=== PATIENT | male | born 1960 | race Caucasian/White ===

== ENCOUNTER 2017-11-07 12:05 | Observation (INO) | payer OTHER ==
[~2017-11-07] VITALS: Ht 177.8 cm; Wt 115.0 kg
[~2017-11-07 12:05] MED LIST: ABAC300; ASPI325EC PO; ASPI81CH PO; ATOR40TA PO; CLOP75 PO; CRUTCH4 USE; EFFIENT10 MG PO; HYDACE5 PO; LISI5 PO; LOVA40 PO; MAPAP PM CAPLET1 TAB PO; METO25ER PO; METO50 PO; NAPR500 PO; ROSU5 PO; TRAM50 PO
[2017-11-07 12:48] LABS: BASOPHILS ABSOLUTE AUTO 0.02 K/mm3 (0.00-0.23); BASOPHILS PERCENT AUTO 0 % (0-2); EOSINOPHILS ABSOLUTE AUTO 0.19 K/mm3 (0.00-0.68); EOSINOPHILS PERCENT AUTO 2 % (0-6); Hematocrit 50.6 % (37.0-53.0); Hemoglobin 17.6 g/dL (13.5-17.5); IMMATURE GRAN ABSOLUTE AUTO 0.02 K/mm3 (0.00-0.10); IMMATURE GRAN PERCENT AUTO 0 % (0-1); LYMPHOCYTES ABSOLUTE AUTO 2.23 K/mm3 (0.84-5.20); LYMPHOCYTES PERCENT AUTO 20 % (21-46); MONOCYTES ABSOLUTE AUTO 1.36 K/mm3 (0.16-1.47); MONOCYTES PERCENT AUTO 12 % (4-13); Mean Corpuscular HGB 33.1 pg (26.0-34.0); Mean Corpuscular HGB Conc 34.8 g/dL (31.5-36.5); Mean Corpuscular Volume 95 fL (80-100); Mean Platelet Volume 9.7 fL (9.1-12.4); NEUTROPHILS ABSOLUTE AUTO 7.31 K/mm3 (1.96-9.15); NEUTROPHILS PERCENT AUTO 66 % (41-73); Platelet Count 286 K/mm3 (150-400); RDW Coefficient Variation 13.3 % (11.7-14.2); RDW Standard Deviation 45.8 fL (35.1-46.3); Red Blood Cell Count 5.32 M/mm3 (4.30-5.90); White Blood Cell Count 11.13 K/mm3 (4.00-11.30)
[2017-11-07 13:00] LABS: Alanine Aminotransfer (ALT/SGP 26 U/L (12-78); Albumin, Blood 3.6 g/dL (3.4-5.0); Albumin/Globulin Ratio 0.9 (0.8-1.8); Alk Phos 90 U/L (50-136); Anion Gap 10 mmol/L (6-16); Aspartate Aminotrans (AST/SGOT 14 U/L (12-37); Bilirubin, Total 0.5 mg/dL (0.1-1.0); Blood Urea Nitrogen 17 mg/dL (8-24); Bun/Creatinine Ratio 19.9 (12.0-20.0); CO2, Blood 20 mmol/L (21-32); Calcium, Blood 8.8 mg/dL (8.5-10.1); Chloride, Blood 110 mmol/L (98-108); Creatinine, Blood 0.85 mg/dL (0.60-1.20); Globulin, Blood 4.1 g/dL (2.2-4.0); Glomerular Filtration Rate >60 (60-); Glucose, Blood 135 mg/dL (70-99); Potassium, Blood 4.1 mmol/L (3.5-5.5); Sodium, Blood 140 mmol/L (136-145); Total Protein, Blood 7.7 g/dL (6.4-8.2); Troponin I <0.015 ng/mL (0.000-0.040)
[2017-11-07] MEDS ORDERED: Aspirin EC81 MG PO (16:33)
[2017-11-07] MEDS ORDERED: LIVALO2 MG PO (17:01)
[2017-11-08 04:50] LABS: BASOPHILS ABSOLUTE AUTO 0.02 K/mm3 (0.00-0.23); BASOPHILS PERCENT AUTO 0 % (0-2); EOSINOPHILS ABSOLUTE AUTO 0.28 K/mm3 (0.00-0.68); EOSINOPHILS PERCENT AUTO 3 % (0-6); Hematocrit 48.5 % (37.0-53.0); Hemoglobin 16.2 g/dL (13.5-17.5); IMMATURE GRAN ABSOLUTE AUTO 0.03 K/mm3 (0.00-0.10); IMMATURE GRAN PERCENT AUTO 0 % (0-1); LYMPHOCYTES PERCENT AUTO 37 % (21-46); MONOCYTES ABSOLUTE AUTO 1.11 K/mm3 (0.16-1.47); MONOCYTES PERCENT AUTO 13 % (4-13); Mean Corpuscular HGB 32.7 pg (26.0-34.0); Mean Corpuscular HGB Conc 33.4 g/dL (31.5-36.5); Mean Platelet Volume 9.9 fL (9.1-12.4); NEUTROPHILS ABSOLUTE AUTO 4.08 K/mm3 (1.96-9.15); NEUTROPHILS PERCENT AUTO 47 % (41-73); Platelet Count 244 K/mm3 (150-400); RDW Coefficient Variation 13.3 % (11.7-14.2); RDW Standard Deviation 47.5 fL (35.1-46.3); Red Blood Cell Count 4.96 M/mm3 (4.30-5.90); White Blood Cell Count 8.72 K/mm3 (4.00-11.30)
[2017-11-08 04:57] LABS: Mean Corpuscular Volume 98 fL (80-100)
[2017-11-08 06:05] LABS: Anion Gap 7 mmol/L (6-16); Blood Urea Nitrogen 18 mg/dL (8-24); Bun/Creatinine Ratio 20.4 (12.0-20.0); CO2, Blood 24 mmol/L (21-32); Calcium, Blood 8.6 mg/dL (8.5-10.1); Chloride, Blood 108 mmol/L (98-108); Creatinine, Blood 0.88 mg/dL (0.60-1.20); Glomerular Filtration Rate >60 (60-); Glucose, Blood 88 mg/dL (70-99); Sodium, Blood 139 mmol/L (136-145)
[2017-11-09 08:08] LABS: LDL/HDL RATIO 2.3; Very Low Density Lipoprot Chol 68 mg/dL (6-32)
[2017-11-09 08:09] LABS: CHOL/HDL RATIO 5.3; Cholesterol 176 mg/dL (50-200); HDL Cholesterol 33 mg/dL (>39); Low Density Lipoprotein Chol 75 mg/dL (0-110); Triglycerides 341 mg/dL (30-160)
[2017-11-09] MEDS ORDERED: FAMO20 PO (14:53)
[2017-11-09] MEDS ORDERED: NITR.4SL SL (14:54)
== END 2017-11-09 15:20 | disposition home or self-care (01) ==
LOC: ER 12:05 → MEDS 12:06
PROVIDERS: Emergency Medicine; Hospitalist; Internal Medicine
DX: R07.9 Chest pain, unspecified (principal); I11.9 Hypertensive heart disease without heart failure; I25.5 Ischemic cardiomyopathy; I25.10 Atherosclerotic heart disease of native coronary artery without angina pectoris; I25.2 Old myocardial infarction; E78.5 Hyperlipidemia, unspecified; Z79.82 Long term (current) use of aspirin; Z72.0 Tobacco use; Z95.5 Presence of coronary angioplasty implant and graft; Z79.899 Other long term (current) drug therapy
CPT/HCPCS: 36415; 71046; 78452; 80048; 80053; 80061; 83690; 84443; 84484; 85025; 93005; 93010; 93017; 96360; 96361; 99285; A9500; G0378; J0280; J2785; J3480; J7030

== ENCOUNTER 2018-03-02 11:59 | Emergency (ER) | payer OTHER ==
[~2018-03-02] VITALS: Ht 177.8 cm; Wt 122.5 kg
[~2018-03-02 11:59] MED LIST changes: +Aspirin EC81 MG PO; +FAMO20 PO; +LIVALO2 MG PO; +NITR.4SL SL
== END 2018-03-02 14:12 | disposition home or self-care (01) ==
LOC: ER 11:59
DX: M77.42 Metatarsalgia, left foot (principal); I25.2 Old myocardial infarction; I10 Essential (primary) hypertension; Z79.899 Other long term (current) drug therapy; Z79.82 Long term (current) use of aspirin; Z87.891 Personal history of nicotine dependence
CPT/HCPCS: 73630; 99283

== ENCOUNTER 2018-12-19 07:18 | Day surgery (SDC) | payer OTHER ==
[~2018-12-19] VITALS: Ht 177.8 cm; Wt 121.0 kg
[~2018-12-19 07:18] MED LIST changes: +CENTRUM SILVER1 EAC1 PO; +GABA300 PO; -LIVALO2 MG PO; +LIVALO4 MG PO; +TRIA15CR3 TOP; +UBID100 PO
[2018-12-19 08:41] LABS: Anion Gap 6 mmol/L (6-16); Blood Urea Nitrogen 15 mg/dL (8-24); Bun/Creatinine Ratio 16.7 (12.0-20.0); CO2, Blood 23 mmol/L (21-32); Calcium, Blood 8.6 mg/dL (8.5-10.1); Chloride, Blood 109 mmol/L (98-108); Glomerular Filtration Rate >60 (60-); Glucose, Blood 106 mg/dL (70-99); Sodium, Blood 138 mmol/L (136-145)
[2018-12-19 08:43] LABS: BASOPHILS ABSOLUTE AUTO 0.04 K/mm3 (0.00-0.23); BASOPHILS PERCENT AUTO 1 % (0-2); EOSINOPHILS ABSOLUTE AUTO 0.35 K/mm3 (0.00-0.68); EOSINOPHILS PERCENT AUTO 4 % (0-6); Hematocrit 49.8 % (37.0-53.0); Hemoglobin 16.5 g/dL (13.5-17.5); IMMATURE GRAN ABSOLUTE AUTO 0.03 K/mm3 (0.00-0.10); IMMATURE GRAN PERCENT AUTO 0 % (0-1); LYMPHOCYTES ABSOLUTE AUTO 2.24 K/mm3 (0.84-5.20); LYMPHOCYTES PERCENT AUTO 27 % (21-46); MONOCYTES ABSOLUTE AUTO 1.34 K/mm3 (0.16-1.47); MONOCYTES PERCENT AUTO 16 % (4-13); Mean Corpuscular HGB Conc 33.1 g/dL (31.5-36.5); Mean Corpuscular Volume 97 fL (80-100); NEUTROPHILS ABSOLUTE AUTO 4.43 K/mm3 (1.96-9.15); NEUTROPHILS PERCENT AUTO 52 % (41-73); Platelet Count 261 K/mm3 (150-400); RDW Coefficient Variation 13.2 % (11.7-14.2); RDW Standard Deviation 47.4 fL (35.1-46.3); Red Blood Cell Count 5.15 M/mm3 (4.30-5.90); White Blood Cell Count 8.43 K/mm3 (4.00-11.30)
[2018-12-19 09:08] LABS: International Normalized Ratio 0.93; Prothrombin Time Results 9.9 Sec (9.7-11.5)
--- NOTE | 2018-12-19 12:08 | NUR ---
PT SLEEPING AT THIS TIME. NADN. VSS. R FEMORAL SITE STABLE. CALL LIGHT WITHIN REACH.
--- NOTE | 2018-12-19 12:40 | NUR ---
PT AMBULATES TO RESTROOM AND BACK WITHOUT DIFF. R GROIN REMAINS STABLE. VSS. NADN. PT DRESSING SELF WITHOUT DIFF. PT ANXIOUS TO LEAVE. STS, "I AM READY TO GO, LETS GET THIS GOING"
--- NOTE | 2018-12-19 12:56 | NUR ---
DR BROOKS VERBALIZES OKAY FOR PT TO LEAVE NOW. SITE REMAINS CLEAR/ STABLE. PT VERBALIZES UNDERSTANDING WRITTEN AND VERBAL ORDERS. IV DC'D. CATH INTACT. PRESSURE DSG IN PLACE. PT DC TO HOME BY [facility].
== END 2018-12-19 12:56 | disposition home or self-care (01) ==
LOC: MHTC 07:18
PROVIDERS: Internal Medicine Cardiovascular Disease
DX: R07.9 Chest pain, unspecified (principal); Z79.899 Other long term (current) drug therapy
CPT/HCPCS: 36415; 80048; 85025; 85610; 93455; 99152; 99153; C1760; C1769; J1644; J2250; J3010; J7030; Q9967

== ENCOUNTER 2020-03-17 14:55 | Inpatient (IN) | payer OTHER ==
[~2020-03-17] VITALS: Ht 177.8 cm; Wt 121.2 kg
[~2020-03-17 14:55] MED LIST changes: -Aspirin EC81 MG PO; -CENTRUM SILVER1 EAC1 PO; -EFFIENT10 MG PO; -GABA300 PO; -LISI5 PO; -LIVALO4 MG PO; -METO50 PO; -UBID100 PO
[2020-03-17 15:44] LABS: Hematocrit 43.8 % (37.0-53.0); Hemoglobin 15.5 g/dL (13.5-17.5); Mean Corpuscular HGB 31.2 pg (26.0-34.0); Mean Corpuscular HGB Conc 35.4 g/dL (31.5-36.5); Mean Corpuscular Volume 88 fL (80-100); Mean Platelet Volume 10.3 fL (9.1-12.4); Platelet Count 400 K/mm3 (150-400); RDW Coefficient Variation 12.8 % (11.7-14.2); RDW Standard Deviation 41.7 fL (35.1-46.3); Red Blood Cell Count 4.97 M/mm3 (4.30-5.90); White Blood Cell Count 14.62 K/mm3 (4.00-11.30)
[2020-03-17 16:11] LABS: BAND PERCENT MAN 5 % (0-8); BASOPHILS ABSOLUTE MAN 0.14 K/mm3 (0.00-0.23); BASOPHILS PERCENT MAN 1 % (0-2); EOSINOPHILS PERCENT MAN 0 % (0-6); LYMPHOCYTES ABSOLUTE MAN 1.02 K/mm3 (0.84-5.20); LYMPHOCYTES PERCENT MAN 7 % (21-46); METAMYELOCYTE ABSOLUTE MAN 0.14 K/mm3 (0.00-0.00); METAMYELOCYTE PERCENT MAN 1 % (0-0); MONOCYTES ABSOLUTE MAN 2.19 K/mm3 (0.16-1.47); MONOCYTES PERCENT MAN 15 % (4-13); NEUTROPHILS ABSOLUTE MAN 11.11 K/mm3 (1.96-9.15); SEG NEUTROPHILS PERCENT MAN 71 % (41-73); TOTAL CELLS COUNTED 100
[2020-03-17 16:13] LABS: Albumin, Blood 2.9 g/dL (3.4-5.0); Albumin/Globulin Ratio 0.6 (0.8-1.8); Bilirubin, Total 0.3 mg/dL (0.1-1.0); Bun/Creatinine Ratio 9.9 (12.0-20.0); Calcium, Blood 7.7 mg/dL (8.5-10.1); Creatinine, Blood 11.8 mg/dL (0.60-1.20); Globulin, Blood 4.7 g/dL (2.2-4.0); Potassium, Blood 2.9 mmol/L (3.5-5.5); Total Protein, Blood 7.6 g/dL (6.4-8.2)
[2020-03-17] MEDS ORDERED: EFFIENT10 MG PO (17:18)
[2020-03-17] MEDS ORDERED: LIVALO4 MG PO (17:18)
[2020-03-17] MEDS ORDERED: LISI5 PO (17:18)
[2020-03-17] MEDS ORDERED: METO50 PO (17:18)
[2020-03-17] MEDS ORDERED: FENO54 PO (17:19)
[2020-03-17] MEDS ORDERED: ISOSORBIDE MONO30 MG PO (17:19)
[2020-03-17] MEDS ORDERED: GABA300 PO (17:19)
[2020-03-17] MEDS ORDERED: PANT40 PO (17:20)
[2020-03-17] MEDS ORDERED: NITR.4SL SL (17:21)
[2020-03-17] MEDS ORDERED: Aspirin EC81 MG PO (17:30)
[2020-03-17] MEDS ORDERED: UBID100 PO (17:31)
[2020-03-17] MEDS ORDERED: CENTRUM SILVER1 EAC1 PO (17:31)
--- NOTE | 2020-03-17 19:35 | NUR ---
ADMISSION TO ICU: REPORT RECEIVED FROM STEVAN Shanks ED RN. PT ARRIVED TO UNIT AT APPROX 1850. HE IS ABLE TO STAND & TX FROM GURNEY TO BED W/O DIFFICULTY. HE DENIES ANY DIZZINESS OR LIGHTHEADEDNESS ON TX. PT IS PROFOUNDLY HYPOTENSIVE ON ARRIVAL, DOPAMINE INCREASED TO 10 MCG/KG/MIN & BESS Phoenix, WORK OVER RIG OPERATOR, HAS CALLED HOSPITALIST TO NOTIFY. ORDERS PLACED FOR GROUP FITNESS ASSISTANT DEPARTMENT HEAD CONSULT & LEVOPHED PRN. REPORT HAS BEEN GIVEN TO JV Thorpe RN TO ASSUME CARE.
--- NOTE | 2020-03-17 20:00 | NUR ---
PATIENT RESTING IN BED A&O ANSWERING ADMIT QUESTIONS WITHOUT DIFFICULTY, OSORIO SLIGHTLY WEAK, ABLE TO VOID KALA URINE SPECIMEN SENT TO LAB. DOPAMINE DRIP TITRATING FOR HYPOTENSION SEE FLOW SHEET. DOCTOR KIMBERLY IN TO SEE PATIENT. DOCTOR REMEDIOS FOLLOWING ELECTROLYTES, SEE ORDERS. CENTRAL LINE TO RIGHT IJ PLACED IN ED. PATIENT C/O BEING THIRSTY AND HUNGRY ORDER FOR CLEAR LIQUID PATIENT TOM CLEAR ENSURE WITHOUT DIFFICULTY.
[2020-03-17 20:08] LABS: Source, Urine Clean Catch
[2020-03-17 20:10] LABS: Bilirubin, Urine Neg (Neg); Blood, Urine 4+ (Neg); Glucose Qualitative, Urine Neg (Neg); Ketones, Urine Neg (Neg); Leukocyte Esterase, Urine Neg (Neg); Nitrite, Urine Neg (Neg); Protein, Urine 3+ (Neg); Specific Gravity, Urine 1.015 (1.003-1.022); Urobilinogen, Urine NORM (Normal)
[2020-03-17 20:16] LABS: Appearance, Urine Clear (Clear); Color, Urine Yellow (P-Yellow)
[2020-03-17 20:18] LABS: Bacteria Mod /hpf; Squamous Epithelial Cells Rare /hpf (Few)
[2020-03-17 20:29] LABS: Albumin, Blood 2.5 g/dL (3.4-5.0); Anion Gap 19 mmol/L (6-16); Blood Urea Nitrogen 111 mg/dL (8-24); CO2, Blood 12 mmol/L (21-32); Calcium, Blood 6.7 mg/dL (8.5-10.1); Chloride, Blood 100 mmol/L (98-108); Glucose, Blood 104 mg/dL (70-99); Phosphorus, Blood 7.5 mg/dL (2.5-4.9); Potassium, Blood 2.8 mmol/L (3.5-5.5); Sodium, Blood 131 mmol/L (136-145)
[2020-03-17 20:31] LABS: Bun/Creatinine Ratio 10.8 (12.0-20.0); Glomerular Filtration Rate 5 (60-)
[2020-03-17 23:48] LABS: Albumin, Blood 2.4 g/dL (3.4-5.0); Anion Gap 17 mmol/L (6-16); Blood Urea Nitrogen 109 mg/dL (8-24); Bun/Creatinine Ratio 11.5 (12.0-20.0); CO2, Blood 13 mmol/L (21-32); Calcium, Blood 6.6 mg/dL (8.5-10.1); Chloride, Blood 102 mmol/L (98-108); Creatinine, Blood 9.51 mg/dL (0.60-1.20); Glomerular Filtration Rate 6 (60-); Glucose, Blood 127 mg/dL (70-99); Phosphorus, Blood 7.3 mg/dL (2.5-4.9); Sodium, Blood 132 mmol/L (136-145)
[2020-03-18 03:31] LABS: BASOPHILS ABSOLUTE AUTO 0.04 K/mm3 (0.00-0.23); BASOPHILS PERCENT AUTO 0 % (0-2); EOSINOPHILS ABSOLUTE AUTO 0.01 K/mm3 (0.00-0.68); EOSINOPHILS PERCENT AUTO 0 % (0-6); Hematocrit 37.6 % (37.0-53.0); Hemoglobin 13.3 g/dL (13.5-17.5); Mean Corpuscular HGB 31.4 pg (26.0-34.0); Mean Corpuscular HGB Conc 35.4 g/dL (31.5-36.5); Mean Corpuscular Volume 89 fL (80-100); Mean Platelet Volume 9.9 fL (9.1-12.4); Platelet Count 357 K/mm3 (150-400); RDW Coefficient Variation 12.8 % (11.7-14.2); Red Blood Cell Count 4.24 M/mm3 (4.30-5.90); White Blood Cell Count 11.72 K/mm3 (4.00-11.30)
[2020-03-18 03:32] LABS: IMMATURE GRAN ABSOLUTE AUTO 0.16 K/mm3 (0.00-0.10); IMMATURE GRAN PERCENT AUTO 1 % (0-1); LYMPHOCYTES ABSOLUTE AUTO 1.16 K/mm3 (0.84-5.20); LYMPHOCYTES PERCENT AUTO 10 % (21-46); MONOCYTES ABSOLUTE AUTO 1.84 K/mm3 (0.16-1.47); MONOCYTES PERCENT AUTO 16 % (4-13); NEUTROPHILS ABSOLUTE AUTO 8.51 K/mm3 (1.96-9.15); NEUTROPHILS PERCENT AUTO 73 % (41-73)
[2020-03-18 03:59] LABS: Magnesium, Blood 2.1 mg/dL (1.6-2.4); Uric Acid, Blood 15.1 mg/dL (3.5-7.2)
[2020-03-18 04:02] LABS: Thyroid Stimulating Hormone 0.117 uIU/mL (0.360-4.800)
[2020-03-18 04:14] LABS: Albumin, Blood 2.3 g/dL (3.4-5.0); Anion Gap 15 mmol/L (6-16); Blood Urea Nitrogen 105 mg/dL (8-24); Bun/Creatinine Ratio 12.4 (12.0-20.0); CO2, Blood 15 mmol/L (21-32); Calcium, Blood 6.9 mg/dL (8.5-10.1); Chloride, Blood 104 mmol/L (98-108); Creatinine, Blood 8.45 mg/dL (0.60-1.20); Glomerular Filtration Rate 7 (60-); Glucose, Blood 141 mg/dL (70-99); Phosphorus, Blood 5.1 mg/dL (2.5-4.9); Sodium, Blood 134 mmol/L (136-145); Troponin I 0.871 ng/mL (0.000-0.040)
[2020-03-18 04:15] LABS: Albumin, Blood 2.2 g/dL (3.4-5.0); Albumin/Globulin Ratio 0.6 (0.8-1.8); Bilirubin, Total 0.2 mg/dL (0.1-1.0); Bun/Creatinine Ratio 12.4 (12.0-20.0); Calcium, Blood 6.8 mg/dL (8.5-10.1); Creatinine, Blood 8.45 mg/dL (0.60-1.20); Potassium, Blood 2.9 mmol/L (3.5-5.5); Total Protein, Blood 6.2 g/dL (6.4-8.2)
--- NOTE | 2020-03-18 06:31 | NUR ---
SUMMARY PATIENT AWAKENS TO SLIGHT STIMULI. NO C/O NAUSEA AND NO BM T/O NIGHT. DOPAMINE DRIP CONTINUES TITRATING T/O NIGHT FOR HYPOTENSION NOW AT 5 MCG. PATIENT URINATING WITHOUT DIFFICULTY. LABS CALLED TO DOCTOR WHITTAKER SEE ORDERS. PATIENT CONTINUES TO HAVE AUDIBLE WHEEZES WITH ACTIVITY OXYGEN CONTINUES AT 2L/NC.
--- NOTE | 2020-03-18 07:30 | NUR ---
ASSUMED CARE BEDSIDE REPORT RECIEVED. PT IS LAYING IN BED RESTING QUIETLY UPON ENTERING ROOM. PT AWAKENS TO VERBAL STIMULI. PT DENIES ANY PAIN OR SOB AT THIS TIME. PT WITH AUDIBLE WHEEZING HEARD FROM BEDSIDE. PT ON 2L O2 NC, SPO2 >94%. VITAL SIGHS STABLE. CENTRAL LINE TO RIJ IN PLACE WITH DOPAMINE INFUSING AT 5 MCG/KG/MIN, BICARB AT 100 ML/HR, AND NS TKO. PT USING URINAL INDEPENDENTLY TO VOID. PT REPOSITIONS SELF IN BED INDEPENDENTLY. PT REQUESTING TO SLEEP MORE THIS MORNING. WILL CONTINUE TO MONITOR.
[2020-03-18 12:35] LABS: Potassium, Blood 2.8 mmol/L (3.5-5.5)
--- NOTE | 2020-03-18 17:49 | NUR ---
SHIFT SUMMARY NO ACUTE CHANGES THIS SHIFT. PT HAS SLEPT OFF AND ON FOR MOST OF THE DAY. WHEN AWAKE PT IS ALERT, ORIENTED, AND ANSWERS QUESTIONS APPROPRIATELY. PT HAS DENIED PAIN, DISCOMFORT, NAUSEA, AND SOB THROUGHOUT THE SHIFT. PT REMAINS ON DOPAMINE GTT AT 5 MCG/KG/MIN. VITAL SIGNS HAVE REMAINED STABLE, PT ON ROOM AIR. CL TO RIGHT IJ IS C/D/I. BICARB GTT INFUSING AT 75 ML/HR. NS TKO. PT VOIDING LARGE AMOUNT OF CLEAR YELLOW URINE WITH URINAL. PT HAS REPOSITIONED SELF IN BED INDEPENDENTLY THROUGHOUT THE DAY. WILL CONTINUE TO MONITOR AND REPORT OFF TO ONCOMING RN.
[2020-03-18 20:22] LABS: Potassium, Blood 2.9 mmol/L (3.5-5.5)
--- NOTE | 2020-03-18 22:39 | NUR ---
ASSUMED PT CARE AT 1915 FROM KILLIAN CATALAN PT IS ALERT AND ORIENTED AND ABLE TO MAKE NEEDS KNOWN. CENTRAL LINE NOTED TO RIGHT IJ WITH DOPAMINE INFUSING AT 5MCG/KG/MIN. BICARB AT 75ML/HR. NS TKO. PT DENIES ANY PAIN. UTILIZING URINAL APPROPRIATELY TO VOID. DENIES ANY N/V, DIARRHEA, WELL CHEST PAIN. BP'S STABLE AT THIS TIME; WILL TITRATE DOPAMINE ACCORDINGLY; SEE FLOWSHEET. PT NOTED TO BE IN NSR WITH HR 80-90'S. PT HAS AUDIBLE WHEEZING NOTED; HOWEVER, DENIES ANY SOB. CALL LIGHT WITHIN REACH. PT IS ABLE TO MAKE NEEDS KNOWN.
[2020-03-19 04:08] LABS: BASOPHILS ABSOLUTE AUTO 0.06 K/mm3 (0.00-0.23); BASOPHILS PERCENT AUTO 1 % (0-2); EOSINOPHILS ABSOLUTE AUTO 0.07 K/mm3 (0.00-0.68); EOSINOPHILS PERCENT AUTO 1 % (0-6); Hematocrit 40.1 % (37.0-53.0); Hemoglobin 14.2 g/dL (13.5-17.5); IMMATURE GRAN ABSOLUTE AUTO 0.42 K/mm3 (0.00-0.10); IMMATURE GRAN PERCENT AUTO 3 % (0-1); LYMPHOCYTES ABSOLUTE AUTO 1.91 K/mm3 (0.84-5.20); LYMPHOCYTES PERCENT AUTO 16 % (21-46); MONOCYTES ABSOLUTE AUTO 2.47 K/mm3 (0.16-1.47); MONOCYTES PERCENT AUTO 20 % (4-13); Mean Corpuscular HGB 31.4 pg (26.0-34.0); Mean Corpuscular HGB Conc 35.4 g/dL (31.5-36.5); Mean Corpuscular Volume 89 fL (80-100); Mean Platelet Volume 9.8 fL (9.1-12.4); NEUTROPHILS ABSOLUTE AUTO 7.34 K/mm3 (1.96-9.15); NEUTROPHILS PERCENT AUTO 60 % (41-73); Platelet Count 385 K/mm3 (150-400); RDW Coefficient Variation 13.2 % (11.7-14.2); RDW Standard Deviation 43.6 fL (35.1-46.3); Red Blood Cell Count 4.52 M/mm3 (4.30-5.90); White Blood Cell Count 12.27 K/mm3 (4.00-11.30)
[2020-03-19 04:30] LABS: Albumin, Blood 2.5 g/dL (3.4-5.0); Anion Gap 10 mmol/L (6-16); Blood Urea Nitrogen 57 mg/dL (8-24); Bun/Creatinine Ratio 24.5 (12.0-20.0); CO2, Blood 20 mmol/L (21-32); Chloride, Blood 112 mmol/L (98-108); Creatinine, Blood 2.33 mg/dL (0.60-1.20); Glomerular Filtration Rate 30 (60-); Glucose, Blood 114 mg/dL (70-99); Magnesium, Blood 2.2 mg/dL (1.6-2.4); Phosphorus, Blood 2.8 mg/dL (2.5-4.9); Potassium, Blood 3.1 mmol/L (3.5-5.5); Sodium, Blood 142 mmol/L (136-145)
--- NOTE | 2020-03-19 05:22 | NUR ---
END OF SHIFT SUMMARY NO SIGNIFICANT CHANGES SINCE LAST ENTRY. DOPAMINE GTT REMAINS AT 5MCG/KG/MIN. BP'S STABLE; SEE FLOWSHEET. PT HAS BEEN NSR WITH AV BLOCK NOTED; HR 70-80'S. NS INFUSING AT 75MLS/HR; BICARB GTT HAS BEEN DISCONTINUED. PT REMAINS ALERT AND ORIENTED AND ABLE TO MAKE NEEDS KNOWN. VOIDING ADEQUATELY USING BEDSIDE URINALS. UP TO TOILET ONCE THIS SHIFT D/T DIARRHEA EPISODE; UNABLE TO MEASURE D/T PT FLUSHING TOILET. PT DENIES ANY N/V, CHEST PAIN, WELL SOB. PLACED ON 2L VIA NC T/O NIGHT D/T OXYGEN SATURATIONS DROPPING TO LOW 80'S. CALL LIGHT WITHIN REACH; PT IS ABLE TO MAKE NEEDS KNOWN. WILL CONTINUE TO MONITOR UNTIL REPORT IS HANDED OFF TO ONCOMING RN.
--- NOTE | 2020-03-19 07:30 | NUR ---
ASSUMED CARE: PT RESTING QUIETLY IN BED. DOPAMIN GTT IN PLACE AT 5MCG/KG/MIN. TITRATED DOWN TO 4MCG/KG/MIN AFTER TRENDING BLOOD PRESSURES. PT IS ALERT AND ORIENTED, MOVES SELF IN BED. STATES BED IS UNCOMFORTABLE BUT DECLINED MOVING INTO CHAIR WHEN OFFERED. VOIDING WELL, CLEAR YELLOW. DENIES NEEDS OR CONCERNS AT THIS TIME.
--- NOTE | 2020-03-19 11:01 | NUR ---
DISCUSSED WITH DR WANG PT'S CONTINUED NEED FOR DOPAMINE, STARTED ON MIDODRINE. DISCUSSED POSSIBLE MAINTENANCE PO POTASSIUM BUT DR WANG WILL DEFER TO DR WHITTAKER. DR MARSHALL MADE AWARE OF PT'S DIARRHEA AND ASKED ABOUT CANCELLED GI PANEL. DR STATED TO ORDER AGAIN SINCE DIARRHEA WAS REPORTED BY NIGHT RN
[2020-03-19 13:39] LABS: Campylobacter Sp Not Detected (NOT DETECT); Plesiomonas Shigelloides Not Detected (NOT DETECT); Salmonella Sp Detected (NOT DETECT)
[2020-03-19 13:40] LABS: Adenovirus F 40/41 Not Detected (NOT DETECT); Astrovirus Not Detected (NOT DETECT); Cryptosporidium Not Detected (NOT DETECT); Cyclospora Cayetanensis Not Detected (NOT DETECT); E. Coli O157 Not Detected (NOT DETECT); Entamoeba Histolytica Not Detected (NOT DETECT); Enteroaggregative E. coli-EAEC Not Detected (NOT DETECT); Enteropathogenic E. coli-EPEC Not Detected (NOT DETECT); Enterotoxigenic E. coli-ETEC Not Detected (NOT DETECT); Giardia Lamblia Not Detected (NOT DETECT); Norovirus GI/GII Not Detected (NOT DETECT); Rotavirus A Not Detected (NOT DETECT); Sapovirus Not Detected (NOT DETECT); Shiga Toxin-prod E. coli-STEC Not Detected (NOT DETECT); Shigella/Enteroin E. coli-EIEC Not Detected (NOT DETECT); Vibrio Cholerae Not Detected (NOT DETECT); Vibrio Sp Not Detected (NOT DETECT); Yersinia Enterocolitica Not Detected (NOT DETECT)
--- NOTE | 2020-03-19 14:25 | NUR ---
PT'S STOOL SAMPLE POSITIVE FOR SAMOLNELLA. DISCUSSED WITH PROCESS OWNER, DR WANG AND DR MARSHALL. INFECTION CONTROL AWARE AND REPORTING TO HEALTH DEPARTMENT. CALL TO PT'S BROTHER SINCE PT STATES THEY LIVE TOGETHER AND EAT THE SAME FOOD AND SHOP AT THE SAME PLACES. INFECTION CONTROL AWARE OF BROTHER'S SUSPECTED SOURCES.
--- NOTE | 2020-03-19 17:28 | NUR ---
SHIFT SUMMARY: PT HAS BEEN OFF DOPAMINE SINCE 1440. VSS. AMBULATING TO TOILET IN ROOM WITH ASSISTANCE WITH LINES. FREQUENT DIARRHEA. STOOL SAMPLE POSITIVE FOR SALMONELLA. DRS AWARE. PT DENIES NEEDS OR CONCERNS AT THIS TIME.
--- NOTE | 2020-03-19 20:00 | NUR ---
ASSUMPTION OF CARE: PT A&O. UP IN ROOM ON OWN. LUNG SOUNDS CLEAR, DIM IN BASES. HAS A DRY NONPRODUCTIVE COUGH. SPO2 >90% ON RA. IN SR. SBP 100S, HR 70S. DOPAMINE HAS BEEN OFF SINCE THIS AFTERNOON. MIDODRINE TO BE STARTED. CL IN RIJ. SMALL AMOUNT OF BLOOD ON CHG AND OUTER EDGE OF DRESSING. OTHERWISE DRY AND INTACT. NS INFUSING AT 75MLS/HR. PT K+ THIS EVENING IS 3.4. ORDERS RECEIVED FROM DR. WHITTAKER TO INFUSE KCL 20MEQS IV. PT IS VOIDING INTO URINAL. WILL CONTINUE TO MONITOR
[2020-03-20 06:23] LABS: BASOPHILS ABSOLUTE AUTO 0.04 K/mm3 (0.00-0.23); BASOPHILS PERCENT AUTO 0 % (0-2); LYMPHOCYTES ABSOLUTE AUTO 2.16 K/mm3 (0.84-5.20); RDW Coefficient Variation 13.6 % (11.7-14.2); RDW Standard Deviation 45.1 fL (35.1-46.3)
--- NOTE | 2020-03-20 06:29 | NUR ---
SHIFT SUMMARY: NO ACUTE CHANGES T/O SHIFT. VSS. SBP 110-160S. HR IN THE 70-80. PT UP TO TOILET VOIDING FREQUENTLY T/O THE NIGHT. LUNG SOUNDS REMAIN WHEEZY, SPO2 >90% ON RA. CENTRAL LINE IN RIJ. DRESSING CHANGE X 2. CURRENTLY C/D/I. AT THIS TIME PT IS REFUSING VITALS TO BE TAKEN STATING HE "CANT DO IT. I CANT SPEND ANOTHER DAY HERE". DENIES WANTING TO AMA. WILL PASS REPORT TO ONCOMING RN
[2020-03-20 06:40] LABS: Albumin, Blood 2.3 g/dL (3.4-5.0); Anion Gap 10 mmol/L (6-16); Blood Urea Nitrogen 23 mg/dL (8-24); Bun/Creatinine Ratio 22.3 (12.0-20.0); CO2, Blood 23 mmol/L (21-32); Chloride, Blood 113 mmol/L (98-108); Creatinine, Blood 1.03 mg/dL (0.60-1.20); Glomerular Filtration Rate >60 (60-); Glucose, Blood 105 mg/dL (70-99); Magnesium, Blood 1.8 mg/dL (1.6-2.4); Phosphorus, Blood 1.2 mg/dL (2.5-4.9); Potassium, Blood 3.3 mmol/L (3.5-5.5); Sodium, Blood 146 mmol/L (136-145); Troponin I 0.122 ng/mL (0.000-0.040)
[2020-03-20 06:41] LABS: EOSINOPHILS ABSOLUTE AUTO 0.17 K/mm3 (0.00-0.68); EOSINOPHILS PERCENT AUTO 2 % (0-6); Hematocrit 36.3 % (37.0-53.0); Hemoglobin 12.8 g/dL (13.5-17.5); IMMATURE GRAN ABSOLUTE AUTO 0.33 K/mm3 (0.00-0.10); IMMATURE GRAN PERCENT AUTO 3 % (0-1); LYMPHOCYTES PERCENT AUTO 21 % (21-46); MONOCYTES ABSOLUTE AUTO 1.97 K/mm3 (0.16-1.47); MONOCYTES PERCENT AUTO 19 % (4-13); Mean Corpuscular HGB 31.8 pg (26.0-34.0); Mean Corpuscular HGB Conc 35.3 g/dL (31.5-36.5); Mean Corpuscular Volume 90 fL (80-100); NEUTROPHILS ABSOLUTE AUTO 5.76 K/mm3 (1.96-9.15); NEUTROPHILS PERCENT AUTO 55 % (41-73); Red Blood Cell Count 4.03 M/mm3 (4.30-5.90); White Blood Cell Count 10.43 K/mm3 (4.00-11.30)
[2020-03-20 06:47] LABS: Mean Platelet Volume 10.3 fL (9.1-12.4); Platelet Count 336 K/mm3 (150-400)
--- NOTE | 2020-03-20 08:43 | NUR ---
ASSUMED CARE OF PT AT 0700. REPORT FROM DEJA DAILY. PT AWAKE IN BED. C/O POOR SLEEP LAST NOC. ALSO REPORTS CHRONIC BACK PAIN, REFUSED TYLENOL OR REQUESTS FOR OTHER PAIN MEDS. DENIES SOB, CP, N/V. A&OX 4. ANSWERS QUESTIONS APPROPRIATELY. ABD FIRM, DISTENDED. PT STATES THIS NORMAL. BT X 4. LUNGS c EXPIRATORY WHEEZES. O2 SATS >92% ON RA. BP STABLE, MIDODRINE HELD THIS AM. CENTRAL LINE TO [facility], DRESSING C/D/I. ELECTROLYTES BEING REPLACED PER REMEDIOS. REPEAT LABS AT 1600. PT TOLERATED FULL LIQUID DIET WELL. PT AMB IN ROOM. WILL CONTINUE TO MONITOR.
[2020-03-20 16:19] LABS: Phosphorus, Blood 2.3 mg/dL (2.5-4.9); Potassium, Blood 4.4 mmol/L (3.5-5.5)
--- NOTE | 2020-03-20 17:36 | NUR ---
SHIFT SUMMARY/TRANSFER TO MEDICAL PT STATUS CHANGED TO MED c TELE THIS SHIFT. ASSESSMENT REMAINS UNCHANGED. AMBULATORY IN ROOM. LUNGS c EXPIRATORY WHEEZES, REFUSING BREATHING TX. O2 SATS MID 90'S ON RA. INCREASED SOB c EXERTION. VSS THIS SHIFT. CL REMOVED, DRESSING TO [facility]. DIET ADVANCED TO REGULAR, TOLERATED WELL, GOOD APPETITE. DENIES N/V/D. ORDER OBTAINED FOR [facility] FOR GENERALIZED BODY ACHES AND CHRONIC BACK PAIN. PAIN IMPROVED. PT HAD ONE EPISODE OF CHEST PAIN TODAY AFTER COUGHING SPELL, RESOLVED AFTER COUGHING SUBSIDED. EKG COMPLETED AT THAT TIME AND SHOWED TO MD. REPORT TO KOSTA DAILY. PT TRANSPORTED TO MEDICAL FLOOR, ALL BELONGINGS c PT.
--- NOTE | 2020-03-20 18:24 | NUR ---
SHIFT SUMMARY PT TRANSFERRED TO 302 FROM ICU2. PT ARRIVED VIA WHEELCHAIR AT ABOUT 1748. PT RESTING IN BED THOUGH COMPLAINS OF PAIN/IRRITATION AT THE SITE WHERE IJ WAS. THE SITE WAS COVERED IN TEGADERM WITH A GAUZE PAD. ICU NURSE ORLIN TOLD NURSE DRESSING OKAY TO REMOVE IF SITE IS NOT BLEEDING. DRESSING REMOVED AND DR ROBBINS NOTIFIED OF PAIN/ IRRITATION. NO NEW ORDERS AT THIS TIME. OKAYED THE REMOVAL OF THE DRESSING WELL. PT AD JACOBY IN ROOM. BED IN LOW POSITION, CALL LIGHT WITHIN REACH.
--- NOTE | 2020-03-21 05:01 | NUR ---
SHIFT SUMMARY- PT. A&O, INDEPENDENT IN ROOM. C/O GENERALIZED PAIN LAST NIGHT. MEDICATED WITH NORCO PER EMAR WITH GOOD EFFECT. PT. ASLEEP T/O THE REST OF THE NIGHT. NO APPARENT DISTRESS NOTED. PT. ANTICIPATING D/C TO HOME THIS AM. CALL LIGHT WITHIN REACH AND SIDE RAILS UP X2. WILL CONT TO MONITOR.
[2020-03-21] MEDS ORDERED: CENTRUM SILVER1 EAC2 PO (12:00)
[2020-03-21] MEDS ORDERED: ACET325 PO (12:02)
[2020-03-21] MEDS ORDERED: NAC600 MG PO (12:03)
[2020-03-21] MEDS ORDERED: ALBU90OI INH (12:03)
[2020-03-21] MEDS ORDERED: BENMENLOZ MT (12:04)
[2020-03-21] MEDS ORDERED: Norco 5-325 Ta1 EACH PO (12:05)
[2020-03-21] MEDS ORDERED: CIPR500 PO (12:05)
[2020-03-21] MEDS ORDERED: ONDA4ODT SL (12:06)
--- NOTE | 2020-03-21 13:50 | NUR ---
discharged:reviewed stay, dc orders, medications, and the things pt need to do at home to prevent a return, aid helped pt down to exit in w[place], a+o
== END 2020-03-21 12:23 | disposition home or self-care (01) | DRG 871 ==
LOC: ER 14:55 → ICUW 18:37 → ICUE 03-20 12:32 → MEDS 03-20 17:53
PROVIDERS: Internal Medicine Critical Care Medicine; Internal Medicine Nephrology; Physician Assistant; ADMIT Internal Medicine
PROC: 8E0ZXY6 Isolation (ICD-10-PCS; principal; 2020-03-17)
DX: A02.1 Salmonella sepsis (principal); R65.21 Severe sepsis with septic shock; N17.0 Acute kidney failure with tubular necrosis; K57.32 Diverticulitis of large intestine without perforation or abscess without bleeding; E87.1 Hypo-osmolality and hyponatremia; E87.2 Acidosis; Z79.82 Long term (current) use of aspirin; I25.2 Old myocardial infarction; I10 Essential (primary) hypertension; E78.5 Hyperlipidemia, unspecified; Z95.1 Presence of aortocoronary bypass graft; Z87.891 Personal history of nicotine dependence; I25.10 Atherosclerotic heart disease of native coronary artery without angina pectoris; E66.9 Obesity, unspecified; Z68.36 Body mass index [BMI] 36.0-36.9, adult; I95.9 Hypotension, unspecified; I25.5 Ischemic cardiomyopathy; E88.09 Other disorders of plasma-protein metabolism, not elsewhere classified; E86.9 Volume depletion, unspecified; E87.6 Hypokalemia; Z20.828 Contact with and (suspected) exposure to other viral communicable diseases
CPT/HCPCS: 0097U; 36415; 36556; 51798; 71045; 71275; 74174; 80053; 80069; 81001; 82330; 82374; 82533; 82550; 83605; 83735; 83880; 84100; 84132; 84295; 84443; 84484; 84550; 85025; 87040; 87086; 93005; 93010; 93306; 96361-59; 96365-59; 96368; 96375-59; 99285-25; A9270; A9270-GY; C1751; J0610; J0696; J1265; J1644; J2405; J3480; J7030; J7040; J7050; J7060; J7070; Q9967; U0003

== ENCOUNTER → 2020-03-29 | Outpatient (CLI) | payer OTHER ==
[~2020-03-29] MED LIST changes: +ACET325 PO; +ALBU90OI INH; +Aspirin EC81 MG PO; +BENMENLOZ MT; +CENTRUM SILVER1 EAC1 PO; +CENTRUM SILVER1 EAC2 PO; +CIPR500 PO; +EFFIENT10 MG PO; +FENO54 PO; +GABA300 PO; +ISOSORBIDE MONO30 MG PO; +LISI5 PO; +LIVALO4 MG PO; +METO50 PO; +NAC600 MG PO; +Norco 5-325 Ta1 EACH PO; +ONDA4ODT SL; +PANT40 PO; +UBID100 PO
== END | disposition home or self-care (01) ==
LOC: LAB EV 14:48 → LAB SHORT 14:48
DX: M79.642 Pain in left hand (principal)
CPT/HCPCS: 84550

== ENCOUNTER 2020-12-09 07:51 | Emergency (ER) | payer OTHER ==
[~2020-12-09] VITALS: Ht 177.8 cm; Wt 125.2 kg
[2020-12-09] MEDS ORDERED: OXYC5 PO (09:20)
== END 2020-12-09 09:37 | disposition home or self-care (01) ==
LOC: ER 07:51
DX: S42.202A Unspecified fracture of upper end of left humerus, initial encounter for closed fracture (principal); Z79.82 Long term (current) use of aspirin; Z79.899 Other long term (current) drug therapy; W01.0XXA Fall on same level from slipping, tripping and stumbling without subsequent striking against object, initial encounter
CPT/HCPCS: 73030; 99283-25; A9270; J1885

== ENCOUNTER 2022-10-04 06:34 | Day surgery (SDC) | payer OTHER ==
[~2022-10-04] VITALS: Ht 177.8 cm; Wt 145.0 kg
[~2022-10-04 06:34] MED LIST changes: +FENO48 PO; +OXYC5 PO; +Zinc Gluconate100 MG PO
--- NOTE | 2022-10-04 10:26 | NUR ---
DISCHARGE REVIEWED WITH PT, VERBALIZES UNDERSTANDING OF ALL INSTRUCTIONS. PT GETTING DRESSED AT THIS TIME PER SELF.
--- NOTE | 2022-10-04 10:39 | NUR ---
PT DRESSED L RADIAL SITE STABLE. TR BAND REMOVED AND AREA CLEANSED. CLOTH DOT PLACED AND ARM BOARD ON. PT INSTRUCTED TO LEAVE ARM BOARD IN PLACE FOR 2 DAYS, VERBALIZES UNDERSTANDING. SALINE LOCK REMOVED WITH CATHETER INTACT. PT TO PRIVATE VEHICLE PER W/C WITH ONE STAFF.
== END 2022-10-04 10:56 | disposition home or self-care (01) ==
LOC: MHTC 06:34
DX: I25.708 Atherosclerosis of coronary artery bypass graft(s), unspecified, with other forms of angina pectoris (principal); R07.9 Chest pain, unspecified; R94.39 Abnormal result of other cardiovascular function study; Z68.42 Body mass index [BMI] 45.0-49.9, adult; E66.9 Obesity, unspecified; Z87.891 Personal history of nicotine dependence; E78.5 Hyperlipidemia, unspecified; Z79.82 Long term (current) use of aspirin; Z88.8 Allergy status to other drugs, medicaments and biological substances; N18.9 Chronic kidney disease, unspecified; I12.9 Hypertensive chronic kidney disease with stage 1 through stage 4 chronic kidney disease, or unspecified chronic kidney disease
CPT/HCPCS: 93455; 99152; 99153; A9270; C1769; C1894; J1644; J2250; J3010; J7030; J7040; Q9967

== ENCOUNTER → 2023-06-26 | Outpatient (CLI) | payer OTHER | END | disposition home or self-care (01) | LOC: LAB SHORT 10:16 → PLD 10:16 → LAB 10:16 | DX: L57.0 Actinic keratosis (principal); L74.8 Other eccrine sweat disorders; L40.8 Other psoriasis | CPT/HCPCS: 88305 ==

== ENCOUNTER → 2023-11-24 | Outpatient (CLI) | payer OTHER | LOC: LAB SHORT 13:03 → LAB 13:03 | DX: E11.9 Type 2 diabetes mellitus without complications (principal) | CPT/HCPCS: 83036 ==

== ENCOUNTER 2024-03-03 23:17 | Emergency (ER) | payer OTHER ==
[~2024-03-03] VITALS: Ht 177.8 cm; Wt 133.4 kg
[2024-03-03 23:48] LABS: BASOPHILS ABSOLUTE AUTO 0.06 K/mm3 (0.00-0.23); BASOPHILS PERCENT AUTO 1 % (0-2); EOSINOPHILS ABSOLUTE AUTO 0.23 K/mm3 (0.00-0.68); EOSINOPHILS PERCENT AUTO 2 % (0-6); Hematocrit 44.9 % (37.0-53.0); Hemoglobin 14.9 g/dL (13.5-17.5); IMMATURE GRAN ABSOLUTE AUTO 0.11 K/mm3 (0.00-0.10); IMMATURE GRAN PERCENT AUTO 1 % (0-1); LYMPHOCYTES ABSOLUTE AUTO 2.52 K/mm3 (0.84-5.20); LYMPHOCYTES PERCENT AUTO 22 % (21-46); MONOCYTES ABSOLUTE AUTO 1.72 K/mm3 (0.16-1.47); MONOCYTES PERCENT AUTO 15 % (4-13); Mean Corpuscular HGB 32.5 pg (26.0-34.0); Mean Corpuscular HGB Conc 33.2 g/dL (31.5-36.5); Mean Corpuscular Volume 98 fL (80-100); Mean Platelet Volume 9.8 fL (9.1-12.4); NEUTROPHILS ABSOLUTE AUTO 6.97 K/mm3 (1.96-9.15); NEUTROPHILS PERCENT AUTO 60 % (41-73); Platelet Count 303 K/mm3 (150-400); RDW Coefficient Variation 13.8 % (11.7-14.2); RDW Standard Deviation 50.1 fL (35.1-46.3); Red Blood Cell Count 4.59 M/mm3 (4.30-5.90); White Blood Cell Count 11.61 K/mm3 (4.00-11.30)
[2024-03-04 00:06] LABS: Albumin, Blood 3.8 g/dL (3.4-5.0); Bilirubin, Total 0.4 mg/dL (0.1-1.0); Bun/Creatinine Ratio 19.5 (12.0-20.0); Calcium, Blood 9.7 mg/dL (8.5-10.1); Creatinine, Blood 1.33 mg/dL (0.60-1.20); Globulin, Blood 3.7 g/dL (2.2-4.0); Potassium, Blood 4.7 mmol/L (3.5-5.5); Total Protein, Blood 7.5 g/dL (6.4-8.2)
[2024-03-04 01:46] VITALS: BP 117/82
== END 2024-03-04 01:47 | disposition home or self-care (01) ==
LOC: ER 23:17
PROVIDERS: Emergency Medicine
DX: R07.9 Chest pain, unspecified (principal); Z88.8 Allergy status to other drugs, medicaments and biological substances; Z79.899 Other long term (current) drug therapy; Z79.82 Long term (current) use of aspirin; I10 Essential (primary) hypertension; I25.2 Old myocardial infarction; E78.5 Hyperlipidemia, unspecified; E66.9 Obesity, unspecified; I25.10 Atherosclerotic heart disease of native coronary artery without angina pectoris; Z87.891 Personal history of nicotine dependence
CPT/HCPCS: 71046; 80053; 84484; 85025; 93005; 93010; 99285-25

== ENCOUNTER → 2024-11-04 | Outpatient (CLI) | payer OTHER | LOC: PLD 11:53 → LAB SHORT 11:53 → LAB 11:53 | DX: L72.0 Epidermal cyst (principal); D49.2 Neoplasm of unspecified behavior of bone, soft tissue, and skin | CPT/HCPCS: 88304 ==

== ENCOUNTER → 2025-01-08 | Outpatient (CLI) | payer OTHER | LOC: LAB SHORT 18:34 → LAB 18:34 | DX: E11.9 Type 2 diabetes mellitus without complications (principal) | CPT/HCPCS: 82043 ==

== ENCOUNTER 2025-06-23 09:18 | Day surgery (SDC) | payer OTHER ==
[~2025-06-23] VITALS: Ht 177.8 cm; Wt 131.5 kg
[2025-06-23] MEDS ORDERED: NS 1,000 ML IV ONE (09:28)
[2025-06-23] MEDS ORDERED: CefTRIAXone Sodium 2,000 MG in NS 100 ML IV ONE (10:20)
[2025-06-23] MEDS ORDERED: GABA800 PO (10:31)
[2025-06-23] MEDS ORDERED: RANO500T PO (10:35)
[2025-06-23] MEDS ORDERED: Midazolam HCl 1MG / ML 2ML Vial ONE (10:38)
[2025-06-23] MEDS ORDERED: FentaNYL Citrate 50 MCG/ML 2 ML Injection ONE (10:38)
[2025-06-23] MEDS ORDERED: OZEMPIC1 MG/0.72 SC (10:39)
--- NOTE | 2025-06-23 11:26 | NUR ---
06/23/25 1126 [facility] TIME OUT: 1116- WITH GARDENIA MADDOX,RN AND LOVERN VERSED GIVEN BY DR GUZMAN PRIOR TO BLOCK BLOCK START: 112 BLOCK END: 112
[2025-06-23] MEDS ORDERED: Ketorolac Tromethamine 30mg Vial ONE (11:32)
[2025-06-23] MEDS ORDERED: ePHEDrine Sulfate 50 MG/ML 1ML Injection ONE (12:50)
[2025-06-23] MEDS ORDERED: Phenylephrine HCl 100 MCG/ML-NS 10MLSYR (1MG/10ML) ONE ×2 (12:50)
[2025-06-23] MEDS ORDERED: Rocuronium Bromide 10 MG/ML 5ML Injection IV ONE ×2 (12:50)
[2025-06-23] MEDS ORDERED: Sugammadex Sodium 200 MG/2ML SDV (100 MG/ML) ONE (13:02)
--- NOTE | 2025-06-23 13:41 | NUR ---
06/23/25 1341 Mame Can PT TO PACU ON 8L NRB. SATTING MID 90S W/ PULSE OX ON R GREAT TOE. LUNGS DIM. DENIES PAIN, WIGGLING FINGERS, (+) RADIAL PULSE. AFTER 5 MINS, AWAKE, ANSWERING QUESTIONS APPROPRIATELY. BP CUFF L UPPER ARM
--- NOTE | 2025-06-23 13:59 | NUR ---
06/23/25 [id number] PamellaMame SATTING 89% ON RA UPON ARRIVAL TO STEPDOWN. NC REAPPLIED PT COUGHING AND DEEP BREATHING INDEPENDENTLY. TOLERATING ICE WATER. CONTINUES TO DENY PAIN. DENIES DIFFICULTY BREATHING, SOB.
[2025-06-23 15:41] VITALS: BP 105/70
== END 2025-06-23 15:50 | disposition home or self-care (01) ==
LOC: ORSCSDS 09:18
PROVIDERS: Orthopaedic Surgery
PROC: 0LM14ZZ Reattachment of Right Shoulder Tendon, Percutaneous Endoscopic Approach (ICD-10-PCS; principal; 2025-06-23 11:45)
PROC: 0RNJ4ZZ Release Right Shoulder Joint, Percutaneous Endoscopic Approach (ICD-10-PCS; principal; 2025-06-23 11:45)
DX: M75.121 Complete rotator cuff tear or rupture of right shoulder, not specified as traumatic (principal); M75.41 Impingement syndrome of right shoulder; M75.51 Bursitis of right shoulder; S43.431A Superior glenoid labrum lesion of right shoulder, initial encounter; E11.22 Type 2 diabetes mellitus with diabetic chronic kidney disease; I12.9 Hypertensive chronic kidney disease with stage 1 through stage 4 chronic kidney disease, or unspecified chronic kidney disease; N18.9 Chronic kidney disease, unspecified; Z79.85 Long-term (current) use of injectable non-insulin antidiabetic drugs; Z79.84 Long term (current) use of oral hypoglycemic drugs; G47.33 Obstructive sleep apnea (adult) (pediatric); E66.01 Morbid (severe) obesity due to excess calories; Z68.41 Body mass index [BMI] 40.0-44.9, adult; Z79.899 Other long term (current) drug therapy; I25.2 Old myocardial infarction; I50.9 Heart failure, unspecified
CPT/HCPCS: 82947; C1713; J0166; J0696; J1885; J2250; J2371; J2704; J3010; J7030; J7120